=== PATIENT | male | born 1965 ===

== ENCOUNTER 2023-08-03 18:28 | Outpatient (CLI) | payer BC, SELFPAY | END 2023-08-03 18:29 | disposition home or self-care (01) | LOC: LKVREF 18:30 | PROVIDERS: PCP Emergency Medicine; Visit Provider Emergency Medicine | DX: Z00.00 Encounter for general adult medical examination without abnormal findings (principal); I10 Essential (primary) hypertension | CPT/HCPCS: 80048 ==

== ENCOUNTER 2023-09-07 15:37 | Outpatient (CLI) | payer BC, SELFPAY ==
--- NOTE | 2023-09-07 16:00 | CRLHL7_ITS ---
For Patients: As a result of the Century Cures Act, medical imaging exams and procedure reports are released immediately into your electronic medical record. You may view this report before your referring provider. If you have questions, please contact your health care provider. INDICATION: Headache TECHNIQUE: Non-contrast CT of the head is submitted. No comparisons. FINDINGS: The ventricles, sulci and gyri are of normal size, shape and contour. Midline structures are centrally located. No convincing evidence of intra- or extra-axial fluid collections. IMPRESSION: 1. No radiographic evidence of acute intracranial abnormalities. Please note that all CT scans at this facility use dose modulation, iterative reconstruction, and/or weight-based dosing when appropriate to reduce radiation dose to as low as reasonably achievable. Dictated by Baldo Cast MD @ 09/07/2023 5:37:13 PM (Electronically Signed)
== END 2023-09-07 15:38 | disposition home or self-care (01) ==
LOC: CT 15:38
PROVIDERS: PCP Emergency Medicine; Visit Provider Emergency Medicine
DX: R51.9 Headache, unspecified (principal)
CPT/HCPCS: 70450